=== PATIENT | female | born 1940 | race Caucasian/White ===

== ENCOUNTER 2018-03-30 22:49 | Inpatient (IN) ==
--- NOTE | 2018-03-30 23:12 | XR ---
EXAM DATE: 03/30/2018 11:08 PM EST AGE/SEX: 77 years / Female INDICATIONS: Cough, shortness of breath. CLINICAL DATA: This is the patient's initial encounter. Patient reports that signs and symptoms have been present for 1 day and indicates a pain score of Nonresponsive. MEDICAL/SURGICAL HISTORY: None. None. COMPARISON: POI, XR CHEST PA AND LAT, 02/25/2018. . FINDINGS: Portable AP view of the chest demonstrates a normal-sized cardiac silhouette with tortuous descending thoracic aorta. Air-filled retrocardiac midline mass represents a hiatal hernia. No pleural effusion , airspace consolidation, or pneumothorax is identified. The bones and soft tissues demonstrate no [place] finding. CONCLUSION: 1. No acute cardiopulmonary abnormality is identified. 2. Stable hiatal hernia. Electronically signed by: Taz Lu MD Board Certified Radiologist 03/30/2018 11:11 PM EST
--- NOTE | 2018-03-30 23:28 | ED ---
HPI General Chief complaint: Shortness of Breath/Dyspnea Stated complaint: sob/evac Time Seen by Provider: 03/30/18 22:52 Source: patient Mode of arrival: EMS Limitations: no limitations History of Present Illness HPI narrative: Patient is a 77 year old female, brought in by EMS due to shortness of breath. She says it started about 4 hours prior to arrival. She has been having an issue with coughing and shortness of breath since [place]. She says she has been working with her doctor to try and find the cause, but has not received a diagnosis. She denies fever or chills. She denies chest pain, leg pain or swelling. She also reports multiple seizures today. Severity is moderate. Related Data Home Medications Medication Instructions Recorded Confirmed albuterol sulfate [Ventolin HFA] 1 puff INHALATION Q6H PRN 03/30/18 03/30/18 carbamazepine 200 mg PO TID 03/30/18 03/30/18 cyanocobalamin (vitamin B-12) 1,000 mcg PO DAILY 03/30/18 03/30/18 [Vitamin B-12] omeprazole 20 mg PO DAILY 03/30/18 03/30/18 sumatriptan succinate 100 mg PO DAILY PRN 03/30/18 03/30/18 trazodone 150 mg PO DAILY 03/30/18 03/30/18 Allergies Allergy/AdvReac Type Severity Reaction Status Date / Time No Known Allergies Allergy Verified 03/30/18 23:01 Review of Systems ROS: all other systems reviewed are negative Constitutional Denies chills and Denies fever(s) ENT Denies dizziness Cardiovascular Denies chest pain and Reports dyspnea Respiratory Reports cough and Reports dyspnea Gastrointestinal Denies abdominal pain, Denies nausea and Denies vomiting Musculoskeletal Denies myalgias and Denies arthralgias Integumentary/Breasts Denies sores and Denies wounds Neurologic Reports seizure-like activity PMFSH Medical History Medical History History of anemia (Acute) Hx of hiatal hernia (Acute) Hx of migraines (Acute) Hx of seizure disorder (Acute) Surgical History Surgical History Hx of appendectomy (Acute) Social History Social History Substance History: No History of Abuse Smoking Status: Never smoker How Often Do You Have a Drink Containing Alcohol: Never Recent Travel in [facility] within the Last 8 Weeks: No Recent Out of Country Travel within the Last 8 Weeks: No Exam Narrative Exam Narrative: GENERAL: Awake and alert, in mild respiratory distress. SKIN: Focused skin assessment warm/dry. HEAD: Atraumatic. Normocephalic. EYES: Pupils equal and round. No scleral icterus. No injection or drainage. ENT: No nasal bleeding or discharge. Mucous membranes pink and moist. NECK: Trachea midline. No JVD. CARDIOVASCULAR: Tachycardia. No murmur appreciated. RESPIRATORY: No accessory muscle use. Diffuse wheezing and coarse breath sounds. Breath sounds equal bilaterally. GASTROINTESTINAL: Abdomen soft, non-tender, nondistended. Hepatic and splenic margins not palpable. MUSCULOSKELETAL: No obvious deformities. No clubbing. No cyanosis. No edema. NEUROLOGICAL: Awake and alert. No obvious cranial nerve deficits. Motor grossly within normal limits. Normal speech. PSYCHIATRIC: Appropriate mood and affect; insight and judgment normal. Course Initial Documented Vital Signs Pulse Rate 120 H 03/30/18 22:49 Respiratory Rate 25 H 03/30/18 22:49 Last Documented Vital Signs Temperature 98.5 F 03/30/18 22:52 Pulse Rate 102 H 03/31/18 00:53 Respiratory Rate 20 03/31/18 00:53 Blood Pressure 123/59 L 03/31/18 00:53 Pulse Oximetry 96 03/31/18 01:16 Critical Care Time Critical Care Time: Yes Total Critical Care Time: 35 Attestation: Aggregate critical care time was 35 minutes. Time to perform other separately billable procedures was not included in the critical care time. My time did not include minutes spent treating any other patients simultaneously or on activities that did not directly contribute to the patient's treatment. The services I provided to this patient were to treat and/or prevent clinically significant deterioration that could result in: serious illness or I provided critical care services requiring my management, as noted below: Chart data review, documentation time, medication orders and management, vital sign assessments/reviewing monitor data, ordering and reviewing lab tests, ordering and interpreting/reviewing x-rays and diagnostic studies, care of the patient and discussion of the patient with the admitting physicians. Medical Decision Making MDM Narrative Medical decision making narrative: Patient is a 77 year old female who comes in complaining of shortness of breath. Exam shows mild respiratory distress, diffuse wheezing and coarse breath sounds. IV established, labs sent. Given 3 duonebs. She received 125mg solumedrol by EMS. Patient's oxygen saturation is 85% on room air, improves to the high 90s on NC. Labs concerning for a WBC count of 17.5. Troponin is elevated to 0.33. Given Aspirin, Heparin. Given Rocephin and Azithromycin. Patient is very anxious, given 0.5mg Ativan PO. CTA chest performed shows no acute abnormalities. Patient admitted for further management. Medical Screen Exam Complete: Yes Emergency Medical Condition: Yes Differential Diagnosis Differential Diagnosis: COPD versus pneumonia versus PE versus ACS Medical Records Medical records reviewed: Yes I reviewed the patient's medical records. Lab Data Lab results reviewed: Yes I reviewed the patient's lab results. Result diagrams: 03/30/18 23:30 03/30/18 23:30 Lab Results 03/30/18 03/30/18 03/30/18 Range/Units 23:30 23:30 23:30 CBC w Diff Slide review pending WBC 17.5 H (4.0-11.0) th/mm3 RBC 3.45 L (4.00-5.30) mil/mm3 Hgb 11.1 L (11.6-15.3) gm/dL Hct 33.5 L (35.0-46.0) % MCV 97.0 (80.0-100.0) fL MCH 32.1 (27.0-34.0) pg MCHC 33.0 (32.0-36.0) % RDW 13.7 (11.6-17.2) % Plt Count 557 H (150-450) th/mm3 MPV 7.5 (7.0-11.0) fL Neut % (Auto) 80.3 H (16.0-70.0) % Lymph % (Auto) 6.1 L (9.0-44.0) % [place] % (Auto) 5.3 (0.0-8.0) % Eos % (Auto) 8.1 H (0.0-4.0) % Baso % (Auto) 0.2 (0.0-2.0) % Neut # (Auto) 14.1 H (1.8-7.7) th/mm3 Lymph # (Auto) 1.1 (1.0-4.8) th/mm3 [place] # (Auto) 0.9 (0.0-0.9) th/mm3 Eos # (Auto) 1.4 H (0.0-0.4) th/mm3 Baso # (Auto) 0.0 (0.0-0.2) th/mm3 WBC Differential . Diff Scan Auto diff confirmed Differential Comment . Platelet Estimate High H (Normal) Platelet Morphology Enlarged H (Normal) PT 10.8 (9.8-11.6) sec INR 1.1 Ratio APTT 25.5 (23.4-31.7) sec Sodium 142 (136-145) meq/L Potassium 3.3 L (3.5-5.1) meq/L Chloride 107 (98-107) meq/L Carbon Dioxide 23.2 (21.0-32.0) meq/L Anion Gap 12 (5-15) meq/L BUN 16 (7-18) mg/dL Creatinine 1.10 H (0.50-1.00) mg/dL Estimated GFR 48 L (>89) mL/min Random Glucose 188 H (74-106) mg/dL Calcium 7.6 L (8.5-10.1) mg/dL Total Bilirubin 0.2 (0.2-1.0) mg/dL AST 19 (15-37) U/L ALT 14 (10-53) U/L Alkaline Phosphatase 64 (45-117) U/L Total Creatine Kinase 252 H (26-192) U/L CK-MB (CK-2) 2.9 (0.5-3.6) ng/mL CK-MB (CK-2) % 1.2 (0.0-4.0) % Troponin I 0.33 H (0.02-0.05) ng/mL Total Protein 7.0 (6.4-8.2) g/dL Albumin 3.1 L (3.4-5.0) g/dL Imaging Data Radiologist's impression: Chest X-Ray 03/30/18 22:53 CONCLUSION: 1. No acute cardiopulmonary abnormality is identified. 2. Stable hiatal hernia. Chest CTA 03/31/18 00:14 CONCLUSION: 1. Examination of the pulmonary arteries is less than optimal in the lower lobe secondary to respiratory motion artifact. The vessels that are adequately evaluated demonstrate no PE. 2. Stable hiatal hernia. ECG Data EKG Prior to Arrival: No Attestation: I personally reviewed and interpreted this ECG as follows: Interpretation: ECG shows NSR at a rate of 79, no ST elevation or depression Discharge Plan Discharge Disposition Patient Disposition: ED Admit(ED Internal Use Only) Discharge Condition Condition: Stable Discharge Order Discharge Orders: ED Use Only Admit Order (Routine); Ordered 03/31/18 Ordered By: Cindy Goldberg Discharge Details Diagnosis: Non-ST elevation MT (NSTEMI), Hypoxia Physicians Team ED Provider: Cindy Goldberg Primary Care Provider: Jose Mcclain Attending Provider: Viviane Chahal Discharge Interventions Interventions: Vital Signs Last Done: 03/31/18 00:53 Status ED Status: Admitted Patient
[2018-03-30 23:58] LABS: Baso % (Auto) 0.2 % (0.0-2.0); Eos # (Auto) 1.4 th/mm3 (0.0-0.4); Eos % (Auto) 8.1 % (0.0-4.0); Hematocrit 33.5 % (35.0-46.0); Hemoglobin 11.1 gm/dL (11.6-15.3); Lymph # (Auto) 1.1 th/mm3 (1.0-4.8); Lymph % (Auto) 6.1 % (9.0-44.0); Mean Corpuscular Hemoglobin 32.1 pg (27.0-34.0); Mean Platelet Volume 7.5 fL (7.0-11.0); Mono # (Auto) 0.9 th/mm3 (0.0-0.9); Mono % (Auto) 5.3 % (0.0-8.0); Neut # (Auto) 14.1 th/mm3 (1.8-7.7); Neut % (Auto) 80.3 % (16.0-70.0); Platelet Count 557 th/mm3 (150-450); Red Blood Count 3.45 mil/mm3 (4.00-5.30); Red Cell Distribution Width 13.7 % (11.6-17.2); White Blood Count 17.5 th/mm3 (4.0-11.0)
[2018-03-31 00:03] LABS: Chloride 107 meq/L (98-107); Potassium 3.3 meq/L (3.5-5.1); Sodium 142 meq/L (136-145)
[2018-03-31 00:07] LABS: Albumin 3.1 g/dL (3.4-5.0); Calcium 7.6 mg/dL (8.5-10.1)
[2018-03-31 00:08] LABS: Activated Partial Thrombo Time 25.5 sec (23.4-31.7); Anion Gap 12 meq/L (5-15); Blood Urea Nitrogen 16 mg/dL (7-18); Carbon Dioxide 23.2 meq/L (21.0-32.0); Glucose,Random 188 mg/dL (74-106); INR 1.1 Ratio; Prothrombin Time 10.8 sec (9.8-11.6)
[2018-03-31 00:11] LABS: Alanine Aminotransferase 14 U/L (10-53); Aspartate Aminotransferase 19 U/L (15-37); Glomerular Filtration Rate 48 mL/min (>89)
[2018-03-31 00:13] LABS: Creatine Kinase 252 U/L (26-192)
[2018-03-31 00:14] LABS: Alkaline Phosphatase 64 U/L (45-117)
[2018-03-31 00:15] LABS: Troponin I 0.33 ng/mL (0.02-0.05)
[2018-03-31 00:25] LABS: CKMB Percent 1.2 % (0.0-4.0); Creatine Kinase MB 2.9 ng/mL (0.5-3.6)
--- NOTE | 2018-03-31 00:57 | CT ---
EXAM DATE: 03/31/2018 12:46 AM EST AGE/SEX: 77 years / Female INDICATIONS: Short of breath. CLINICAL DATA: This is the patient's initial encounter. Patient reports that signs and symptoms have been present for 1 day and indicates a pain score of 0/10. MEDICAL/SURGICAL HISTORY: Hiatal hernia. Seizures. Anemia. None. RADIATION DOSE: 16.44 CTDI (mGy) COMPARISON: POI, XR CHEST PA AND LAT, 02/25/2018. HPO, CHEST 1V SINGLE AP, 03/30/2018. . TECHNIQUE: Volumetric scanning was performed using a multi-row detector CT scanner during bolus infu duarte of 65 ml Omnipaque 350 (iohexol) nonionic water-soluble contrast as a single exam dose. The gracie a was post processed with a variety of visualization algorithms including full volume maximum intensi ty projection and sliding thin slab reformation. Using automated exposure control and adjustment of the mA and/or kV according to patient size, radiation dose was kept as low as reasonably achievable t o obtain optimal diagnostic quality images. DICOM format image data is available electronically for review and comparison. FINDINGS: Examination quality is degraded by respiratory motion artifact. Pulmonary Arteries: No filling defect is identified through most of the segmental level pulmonary art eries. However, the lower lobe pulmonary arteries are suboptimally evaluated secondary to the respira tory motion artifact. Lungs: Detailed evaluation of the lung parenchyma is limited by respiratory motion artifact but no a irspace consolidation or pneumothorax is identified. Mediastinum: The heart and great vessels demonstrate no acute abnormality. No lymphadenopathy is vis ualized. There is atherosclerotic disease of the aorta. Pleurae: No pleural effusion or pleural thickening. Axillae: No lymphadenopathy. Musculoskeletal: No acute osseous abnormality is identified. There are degenerative changes of the t horacic spine with accentuated thoracic kyphosis. Other: Visualized upper abdominal structures demonstrate no acute abnormality. There is a right uppe r pole renal cyst measuring 4 cm. Adrenal glands are mildly thickened bilaterally. There is a hiatal hernia. CONCLUSION: 1. Examination of the pulmonary arteries is less than optimal in the lower lobe secondary to respira tory motion artifact. The vessels that are adequately evaluated demonstrate no PE. 2. Stable hiatal hernia. Electronically signed by: Taz Lu MD Board Certified Radiologist 03/31/2018 12:55 AM EST
[2018-03-31] MEDS ORDERED: Heparin 10,000 UNITS/10 ML Vial (for IV use) IV.PUSH STA (01:40)
[2018-03-31] MEDS ORDERED: LORazepam 0.5 MG Tablet PO ONE (01:42)
[2018-03-31] MEDS ORDERED: Azithromycin Inj 500 MG in Sodium Chlor 0.9% Inj 250 ML IV.SIG ONE (01:51)
[2018-03-31] MEDS: Heparin Drip 25,000 UNIT/250 ML BAG IV.CONT PRN (02:12)
[2018-03-31] MEDS ORDERED: Acetaminophen 325 MG Tablet PO PRN (04:58)
[2018-03-31] MEDS ORDERED: Bisacodyl 10 MG Supp RECTAL PRN (04:58)
[2018-03-31] MEDS: Pantoprazole Sodium 20 MG DR Tablet PO SCH (08:24)
[2018-03-31] MEDS: carBAMazepine 200 MG Tablet PO SCH ×3 (08:24→17:05)
[2018-03-31 09:10] LABS: Troponin I 0.94 ng/mL (0.02-0.05)
[2018-03-31 09:22] LABS: CKMB Percent 1.7 % (0.0-4.0)
--- NOTE | 2018-03-31 10:10 | P.HPIM ---
History of Present Illness Primary Care Physician: Jose Mcclain MD Chief Complaint: Shortness of breath and cough History of Present Illness: This is a 77-year-old female with history of seizures, no other significant comorbidities presenting with shortness of breath and cough which has been going on since December 2017. Per patient, outpatient workup has already been done, there is no diagnosis yet as to the etiology of her shortness of breath. She has been given Ventolin with minimal improvement. This is progressively worsened during the last few weeks. Last night, patient had a coughing spell and she called her son who brought her to the hospital. She also had an episode of aura that usually comes with her seizure but she did not have any involuntary rhythmic movements of her extremities but felt numbness of both lower extremities. She denies any chest pain, palpitations, nausea, vomiting, fever, chills, diarrhea or urinary symptoms. She however started having left lower quadrant pain when she coughs about 1 week ago. Past medical history Please see past medical history section, in addition, she was found to have a hiatal hernia No previous history of surgery Family history Both parents from heart attacks at late 70s Both sisters had cancer, one had pancreatic cancer, another one had a throat cancer Patient never a smoker, no significant alcohol use. Inpatient Certification Inpatient Certification: I certify that the inpatient services were ordered in accordance with Medicare regulations governing the order. This includes certification that hospital inpatient services are reasonable and necessary and in the case of services not specified as inpatient-only under 42 CFR 419.22(n), that they are appropriately provided as inpatient services in accordance to with the 2-midnight benchmark under 43 CFR 412.3(e) Estimated Total Length of Stay (Days): 3 Plans for Post Hospital Care: Not yet determined Review of Systems Review of Systems: all other systems reviewed are negative [facility] Medical History Medical History History of anemia (Acute) Hx of hiatal hernia (Acute) Hx of migraines (Acute) Hx of seizure disorder (Acute) Surgical History Surgical History Hx of appendectomy (Acute) Social History Social History Substance History: No History of Abuse Second Hand Smoke Exposure: No Smoking Status: Never smoker How Often Do You Have a Drink Containing Alcohol: Never Recent Travel in [place] within the Last 8 Weeks: No Recent Out of Country Travel within the Last 8 Weeks: No Immunization History Tetanus Immunization: >5 Years Medications and Allergies Allergies Allergy/AdvReac Type Severity Reaction Status Date / Time No Known Allergies Allergy Verified 03/30/18 23:01 Home Medications Medication Instructions Recorded Confirmed Type albuterol sulfate [Ventolin HFA] 1 puff INHALATION Q6H PRN 03/30/18 03/30/18 History carbamazepine 200 mg PO TID 03/30/18 03/30/18 History cyanocobalamin (vitamin B-12) 1,000 mcg PO DAILY 03/30/18 03/30/18 History [Vitamin B-12] omeprazole 20 mg PO DAILY 03/30/18 03/30/18 History sumatriptan succinate 100 mg PO DAILY PRN 03/30/18 03/30/18 History trazodone 150 mg PO DAILY 03/30/18 03/30/18 History Active Medications: Active Medications Acetaminophen (Tylenol) 650 mg PO Q4H PRN PRN Reason: Temp > 100.4 Albuterol (Duoneb Neb (Prn)) 1 ampul NEB Q2HR NEB PRN PRN Reason: SHORTNESS OF BREATH/WHEEZING Bisacodyl (Dulcolax Supp) 10 mg RECTAL DAILY PRN PRN Reason: SEVERE CONSITIPATION Carbamazepine (Tegretol) 200 mg PO TID [facility] Last Admin: 03/31/18 08:24 Dose: 200 mg Heparin Sodium/Dextrose (Heparin/D5w 25,000 U/250 Ml) 25,000 unit in 250 mls @ 0 mls/hr IV.CONT TITRATE PRN; Protocol PRN Reason: Per Protocol Last Titration: 03/31/18 04:59 Dose: 700 units/hr, 7 mls/hr Ondansetron HCl (Zofran Inj) 4 mg IV.PUSH Q6H PRN PRN Reason: NAUSEA OR VOMITING Pantoprazole Sodium (Protonix) 20 mg PO DAILY [facility] Last Admin: 03/31/18 08:24 Dose: 20 mg Sennosides (Senokot) 17.2 mg PO Q12H PRN PRN Reason: Moderate Constipation Sodium Chloride (Ns Flush) 2 ml IV.FLUSH BID [facility] Last Admin: 03/31/18 08:24 Dose: 2 ml Sodium Chloride (Ns Flush) 2 ml IV.FLUSH PRN PRN PRN Reason: FLUSH AFTER USING IV ACCESS Sumatriptan Succinate (Imitrex) 100 mg PO DAILY PRN PRN Reason: migraines Trazodone HCl (Desyrel) 150 mg PO [facility] Physical Exam Vital signs: Vital Signs 03/30/18 22:49 03/30/18 22:52 03/30/18 22:55 Temperature 98.5 F Pulse Rate 120 H 130 H 119 H Respiratory Rate 25 H 30 H 25 H Blood Pressure 161/99 H Pulse Oximetry 91 L 03/30/18 23:02 03/30/18 23:15 03/31/18 00:53 Temperature Pulse Rate 115 H 102 H Respiratory Rate 23 20 Blood Pressure 123/59 L Pulse Oximetry 97 96 03/31/18 00:54 03/31/18 01:16 03/31/18 03:08 Temperature Pulse Rate 104 H Respiratory Rate 18 Blood Pressure 120/62 Pulse Oximetry 96 96 98 03/31/18 04:54 03/31/18 08:00 Temperature 98.3 F Pulse Rate 109 H 93 H Respiratory Rate 20 15 Blood Pressure 144/75 H 131/69 Pulse Oximetry 98 99 Intake & Output 03/30/18 03/31/18 03/31/18 18:59 06:59 18:59 Intake Total 350 / 350 Balance 350 / 350 Weight 55.45 kg Intake: IV 350 / 350 Azithromycin Inj 500 MG In NS 250 / 250 Inj 250 ML @ 250 mls/hr IV.SIG ONCE ONE Rx#:[id number] Rocephin Inj 1,000 MG In NS Inj 100 / 100 100 ML @ 200 mls/hr IV.SIG ONCE ONE Rx#:[id number] Other: Date of Last Bowel Movement 03/30/18 Weight On Admission 55.45 kg Narrative: In mild distress because of coughing spells, otherwise saturating well Pupils equal round reactive, pink conjunctivae, anicteric No obvious JVD, supple neck, no lymphadenopathy Borderline tachycardic, regular rhythm, no murmurs appreciated Crackles all over, breath sounds equal bilaterally. Abdomen soft, mild tenderness on the palpation of the left lower quadrant, no guarding, positive bowel sounds No edema Alert awake and oriented x3, no focal deficits, no cranial nerve deficits. Results Labs CBC & Chem 7: 03/30/18 23:30 03/30/18 23:30 Imaging Impressions Chest X-Ray 03/30/18 22:53 CONCLUSION: 1. No acute cardiopulmonary abnormality is identified. 2. Stable hiatal hernia. Chest CTA 03/31/18 00:14 CONCLUSION: 1. Examination of the pulmonary arteries is less than optimal in the lower lobe secondary to respiratory motion artifact. The vessels that are adequately evaluated demonstrate no PE. 2. Stable hiatal hernia. Caprini VTE Risk Assessment Caprini VTE Risk Assessment: Moderate/High Risk (score >= 2) Caprini Risk Assessment Model: Point Value = 1 Point Value = 2 Point Value = 3 Point Value = 5 Age 41-60 Minor surgery BMI > 25 kg/m2 Swollen legs Varicose veins or History of unexplained or recurrent spontaneous Oral contraceptives or hormone replacement Sepsis (< 1 month) Serious lung disease, including pneumonia (< 1 month) Abnormal pulmonary function Acute myocardial infarction Congestive heart failure (< 1 month) History of inflammatory bowel disease Medical patient at bed rest Age 61-74 Arthroscopic surgery Major open surgery (> 45 min) Laparoscopic surgery (> 45 min) Malignancy Confined to bed (> 72 hours) Immobilizing plaster cast Central venous access Age >= 75 History of VTE Family history of VTE Factor V Leiden Prothrombin [id number] Lupus anticoagulant Anticardiolipin antibodies Elevated serum homocysteine Heparin-induced thrombocytopenia Other congenital or acquired thrombophilia Stroke (< 1 month) Elective arthroplasty Hip, pelvis, or leg fracture Acute spinal cord injury (< 1 month) Prophylaxis Regimen: Total Risk Factor Score Risk Level Prophylaxis Regimen 0-1 Low Early ambulation 2 Moderate Order ONE of the following: *Sequential Compression Device (SCD) *Heparin 5000 units SQ BID 3-4 Higher Order ONE of the following medications: *Heparin 5000 units SQ TID *Enoxaparin/Lovenox 40 mg SQ daily (WT < 150 kg, CrCl > 30 mL/min) *Enoxaparin/Lovenox 30 mg SQ daily (WT < 150 kg, CrCl > 10-29 mL/min) *Enoxaparin/Lovenox 30 mg SQ BID (WT < 150 kg, CrCl > 30 mL/min) AND/OR *Sequential Compression Device (SCD) 5 or more Highest Order ONE of the following medications: *Heparin 5000 units SQ TID (Preferred with Epidurals) *Enoxaparin/Lovenox 40 mg SQ daily (WT < 150 kg, CrCl > 30 mL/min) *Enoxaparin/Lovenox 30 mg SQ daily (WT < 150 kg, CrCl > 10-29 mL/min) *Enoxaparin/Lovenox 30 mg SQ BID (WT < 150 kg, CrCl > 30 mL/min) AND *Sequential Compression Device (SCD) Assessment and Plan Plan This is a 77-year-old female with history of seizures presenting with chronic shortness of breath which worsened in the last few days Shortness of breath possibly secondary to congestive heart failure versus possible pulmonary fibrosis, r/o PNA -check BNP, chest x-ray did not show any pulmonary edema, chest CTA negative for PE, not the best study though. Consult pulmonary, possible pulmonary fibrosis given coarse crackles on exam start duo nebs [id number] and as needed, will eventually need pulmonary function tests. There is also no evidence of pleural effusion. Patient has leukocytosis but no evidence of pneumonia on imaging, check sputum culture, check Legionella antigen. Rapid flu negative. Check echocardiogram, start Solu -Medrol. Doubt aggressive infection due to time frame of symptoms, hold off azithromycin and CTX for now. Tessalon for symptomatic management. Mild troponin elevation-serial EKG and troponin, consult cardiology, patient denies any chest pain, check echocardiogram as above. Start aspirin. Check lipid profile, continue heparin. Seizures-patient had an aura prior to admission, continue home AEDs, check carbamazepine level. Dehydration-recheck BMP tomorrow. Will await BNP. Hypokalemia-replace DVT prophylaxis: Heparin H&P: Quality VTE Deep Vein Thrombosis/Pulmonary Embolism Present on Admission: No
[2018-03-31] MEDS ORDERED: Potassium Chloride Liq 20 MEQ/15 ML UDC PO ONE (10:16)
[2018-03-31] MEDS: MethylPREDNISolone Sod Succinate Inj 40 MG/ML Vial IV.PUSH SCH ×2 (13:04→20:59)
--- NOTE | 2018-03-31 13:30 | ECHRPT ---
Indication: Cardiomyopathy CONCLUSIONS Normal left ventricular size. Wall thickness is measured at the upper limits of normal. The left sherly tricular systolic function is normal with an estimated ejection fraction in the range of 50-55%. No regional wall motion abnormalities are present. Trace mitral valve regurgitation. Mild mitral annular calcification is present. Mild leaflet sclero sis and calcification. BP: / HR: Rhythm: MEASUREMENTS (Male / Female) Normal Values Technical Quality:Fair 2D ECHO LV Diastolic Diameter PLAX 4.3 cm 4.2 - 5.9 / 3.9 - 5.3 cm LV Systolic Diameter PLAX 3.2 cm IVS Diastolic Thickness 1.0 cm 0.6 - 1.0 / 0.6 - 0.9 cm LVPW Diastolic Thickness 0.8 cm 0.6 - 1.0 / 0.6 - 0.9 cm LV Relative Wall Thickness 0.4 RV Internal Dim ED PLAX 2.4 cm LVOT Diameter 1.9 cm Aortic Root Diameter 2.8 cm LA Systolic Diameter LX 3.7 cm 3.0 - 4.0 / 2.7 - 3.8 cm M-MODE AV Cusp Separation MM 1.7 cm DOPPLER AV Peak Velocity 127.0 cm/s AV Peak Gradient 6.5 mmHg LVOT Peak Velocity 82.4 cm/s LVOT Peak Gradient 2.7 mmHg AV Area Cont Eq pk 1.8 cm Mitral E Point Velocity 101.0 cm/s Mitral A Point Velocity 121.0 cm/s Mitral E to A Ratio 0.8 LV E' Lateral Velocity 7.5 cm/s Mitral E to LV E' Lateral Ratio 13.4 LV E' Septal Velocity 5.5 cm/s Mitral E to LV E' Septal Ratio 18.5 TR Peak Velocity 244.0 cm/s TR Peak Gradient 23.8 mmHg Right Atrial Pressure 10.0 mmHg Pulmonary Artery Systolic Pressu 33.8 mmHg Right Ventricular Systolic Press 33.8 mmHg PV Peak Velocity 96.4 cm/s PV Peak Gradient 3.7 mmHg FINDINGS LEFT VENTRICLE Normal left ventricular size. Wall thickness is measured at the upper limits of normal. The left sherly tricular systolic function is normal with an estimated ejection fraction in the range of 50-55%. No regional wall motion abnormalities are present. RIGHT VENTRICLE Normal right ventricular size and systolic function. LEFT ATRIUM The left atrial size is normal. RIGHT ATRIUM The right atrial size is normal. ATRIAL SEPTUM Normal atrial septal thickness without atrial level shunting by limited color doppler interrogation. AORTA The aortic root and proximal ascending aorta are normal in size on limited imaging. MITRAL VALVE Trace mitral valve regurgitation. Mild mitral annular calcification is present. Mild leaflet sclero sis and calcification. AORTIC VALVE Trileaflet aortic valve. No aortic valve stenosis or regurgitation. TRICUSPID VALVE Structurally normal tricuspid valve. No tricuspid valve stenosis or regurgitation. PULMONARY VALVE No pulmonary valve regurgitation or stenosis. VESSELS The inferior vena cava is normal in size. PERICARDIUM There is a small pericardial effusion present. Donovan Pham MD (Electronically Signed) Final Date:31 March 2018 13:29
--- NOTE | 2018-03-31 13:40 | MB ---
cc: Donovan Pham MD DATE: 03/31/2018 REASON FOR CONSULTATION: Abnormal troponin level. HISTORY OF PRESENT ILLNESS: The patient is a 77-year-old white female with a history of migraine headaches, seizure disorder, who presented to the hospital with complaints of shortness of breath as well as increased frequency of seizures. For the past 3 months, she has had increased shortness of breath. Minimal exertion precipitates considerable dyspnea. She denies paroxysmal nocturnal dyspnea, orthopnea, pedal edema, chest pain, palpitations, syncope, near syncope, dizziness. Troponin levels were checked and found to be slightly abnormal. PAST MEDICAL HISTORY: 1. Migraine headaches. 2. Seizure disorder. PAST SURGICAL HISTORY: 1. Appendectomy. 2. Hysterectomy. CARDIAC MEDICATIONS AT HOME: None. ALLERGIES: NO KNOWN DRUG ALLERGIES. FAMILY HISTORY: Noncontributory. SOCIAL HISTORY: The patient denies any history of alcohol or tobacco abuse. REVIEW OF SYSTEMS: As in the history of present illness, otherwise negative or noncontributory. She also denies headache, abdominal pain, melena, dyspepsia, bright red blood per rectum. She does report a chronic nonproductive cough for the past 2-3 months. PHYSICAL EXAMINATION: VITAL SIGNS: Her blood pressure 131/69 with a pulse of 93, respirations 15. GENERAL: She is a well-developed, thin white female, in no acute distress. NECK: Jugular venous pressure is normal. Carotid pulses are 2+ bilaterally and without bruits. CHEST: Examination of the chest reveals clear lungs [place]. CARDIAC: She has a regular rhythm and rate without S3, S4, or murmur. ABDOMEN: She has a soft, nontender abdomen. Bowel sounds are present. There is no definite hepatosplenomegaly. EXTREMITIES: Reveals no clubbing, cyanosis or edema. LABORATORY DATA: Includes WBC 17.5, hemoglobin 11.1, platelets 557. Potassium 3.3, BUN 16, creatinine 1.10. Troponin 0.94, CK 292, with 1.7% MB fraction. Brain natriuretic peptide level 696. IMAGING: Chest x-ray shows no acute disease. DIAGNOSTIC DATA: 1. EKG from 03/30/2018 at 11:10 p.m. shows sinus tachycardia, poor R-wave progression. 2. EKG from 03/31/2018 at 6:12 a.m. shows normal sinus rhythm, poor R-wave progression. IMPRESSION: Minimally abnormal troponin levels, chronic shortness of breath in a 77-year-old white female with a history of migraine headaches, seizure disorder. The etiology of the elevation in troponin is not entirely clear. She has had no chest pain symptoms. EKGs are unremarkable. Except for advanced age, she has no major risk factors for coronary disease. There is no definite evidence for congestive heart failure. CT angiogram of the chest reportedly is suboptimal, but no definite pulmonary embolism is seen. RECOMMENDATIONS: 1. Lexiscan nuclear stress testing. At this time, she is unable to lie flat for this test. We will wait to order the exam until she is able to lie supine. 2. Await her 2D echo. MD JOYCE Aguirre/mauro , 01:05 PM , 01:13 PM ANA
[2018-03-31] MEDS: guaiFENesin/Codeine Syrup 200 MG/20 MG 10 ML UDC PO SCH (18:42)
--- NOTE | 2018-03-31 18:57 | MB ---
cc: Ruben Garcia MD DATE: 03/31/2018 REQUESTING PHYSICIAN: Philly Muller MD REASON FOR CONSULTATION: Persistent cough, possible pulmonary fibrosis. HISTORY OF PRESENT ILLNESS: Ms. Maya is a pleasant 77-year-old female with history of seizure disorder, migraine headache. The patient takes seizure medication. She had some cold symptoms around giving. After that, she has been having persistent cough. She has bouts of coughing spells, and that causes her headache and abdominal discomfort and sometimes that precipitates her seizure. She has taken steroids, antibiotic in the past, did not help her. She came to the hospital with worsening of her shortness of breath and aura of seizure. She was found to have slightly increased troponin. The patient has been seen by Dr. Pham, and she is going to have a nuclear stress test. She had a workup done. Her CTA of the chest does not show any pulmonary embolism. It shows no pneumothorax. Great vessels show no acute abnormality. Her CBC shows WBC count 17.5, hemoglobin 11.1, hematocrit 33.5, MCV 97, platelet count 557. INR is 1.1. Sodium 140, potassium 3.3, chloride 107, CO2 of 23, BUN 16, creatinine 1.10. Troponin 0.258. BNP 696. PAST MEDICAL HISTORY: Significant for history of migraine headache, history of hiatal hernia, seizure disorder. MEDICATIONS: 1. She is taking aspirin 325 mg a day. 2. Tessalon 100 mg every 8 hours. 3. Tegretol 200 mg 3 times a days. 4. She is on heparin drip. 5. Solu-Medrol 40 mg every 6 hours. 6. Zofran p.r.n. 7. Protonix 40 mg a day. 8. Imitrex as needed. 9. trazodone 150 mg at night. ALLERGIES: NO KNOWN DRUG ALLERGIES. SOCIAL HISTORY: She works in the office. No history of smoking or alcohol abuse. FAMILY HISTORY: She is and lives alone. She has 3 children. Her daughter is at the bedside. REVIEW OF SYSTEMS: Normally, she is up, around, and active. She is having persistent cough which is making it difficult for her to do anything. Even when she talks on the phone, she gets short of breath. No heartburn. No runny nose. No sneezing. PHYSICAL EXAMINATION: GENERAL: The patient is a thin-built anxious, elderly female in mild discomfort because of persistent cough. VITAL SIGNS: Blood pressure 115/97, heart rate 85, respirations 17, temperature 98.8. HEENT: Pupils are equal, round, and reactive to light. Oral mucosa and nasal mucosa normal. NECK: No JVD noted. CHEST: Equal air entry bilaterally. Few scattered rhonchi. CARDIOVASCULAR: S1, S2 normal. ABDOMEN: Benign. EXTREMITIES: No edema. IMPRESSION: 1. Persistent cough, possible reactive airway disease. Need to rule out aberrant bronchial asthma. 2. Migraine headache. 3. Seizure disorder. 4. Anxiety. 5. Increased troponin. PLAN: We will give her IV Solu-Medrol, aerosol treatment with albuterol, Tessalon 100 mg twice a day, Robitussin-AC cough syrup 10 mL every 6 hours. We will check pulmonary function study. Further treatment plan depending on the course in the hospital. Thank you, Dr. Muller, for this consult. MD IRINA Matias/franck/ajay , 06:09 PM , 06:19 PM [email or web address]
[2018-03-31] MEDS: traZODone 100 MG Tablet PO SCH (20:59)
--- NOTE | 2018-04-01 01:30 | ECG ---
Date Performed: 03/30/2018 Time Performed: 23:10:27 PTAGE: 77 years EKG: SINUS TACHYCARDIA WITH FIRST DEGREE AV BLOCK LOW QRS VOLTAGE IN EXTREMITY LEADS ABNORMAL EC G PREVIOUS TRACING : 01/20/2012 15.05 Since the previous tracing, no significant change noted DOCTOR: Felice Soni Interpretating Date/Time 04/01/2018 01:29:37
--- NOTE | 2018-04-01 01:39 | ECG ---
Date Performed: 03/31/2018 Time Performed: 06:12:04 PTAGE: 77 years EKG: Sinus rhythm Poor R wave progression - probable normal variant Borderline ECG PREVIOUS TRACING : 03/30/2018 23.10 Compared to previous tracing, rate has decreased DOCTOR: Felice Soni Interpretating Date/Time 04/01/2018 01:39:06
[2018-04-01] MEDS: guaiFENesin/Codeine Syrup 200 MG/20 MG 10 ML UDC PO SCH ×4 (03:50→17:54)
[2018-04-01] MEDS: MethylPREDNISolone Sod Succinate Inj 40 MG/ML Vial IV.PUSH SCH ×3 (05:52→21:01)
[2018-04-01] MEDS: Heparin Drip 25,000 UNIT/250 ML BAG IV.CONT PRN (05:53)
--- NOTE | 2018-04-01 08:06 | P.PNCA ---
Subjective Interval history: Moderately dyspneic at present. No CP, dizziness, palpitations. Slept fairly well. Medications and Allergies Active Medications: Active Cardiac Medications Aspirin (Aspirin) 325 mg PO DAILY HARVINDER Heparin Sodium/Dextrose (Heparin/D5w 25,000 U/250 Ml) 25,000 unit in 250 mls @ 0 mls/hr IV.CONT TITRATE PRN; Protocol PRN Reason: Per Protocol Last Admin: 04/01/18 05:53 Dose: 900 units/hr, 9 mls/hr Allergies Allergy/AdvReac Type Severity Reaction Status Date / Time No Known Allergies Allergy Verified 03/30/18 23:01 Home Medications Medication Instructions Recorded Confirmed Type albuterol sulfate [Ventolin HFA] 1 puff INHALATION Q6H PRN 03/30/18 03/30/18 History carbamazepine 200 mg PO TID 03/30/18 03/30/18 History cyanocobalamin (vitamin B-12) 1,000 mcg PO DAILY 03/30/18 03/30/18 History [Vitamin B-12] omeprazole 20 mg PO DAILY 03/30/18 03/30/18 History sumatriptan succinate 100 mg PO DAILY PRN 03/30/18 03/30/18 History trazodone 150 mg PO DAILY 03/30/18 03/30/18 History Physical Exam Vital signs: Vital Signs 03/31/18 11:00 03/31/18 13:31 03/31/18 14:53 Temperature Pulse Rate 91 H 92 H 85 Respiratory Rate 20 17 Blood Pressure 115/97 H Pulse Oximetry 98 97 03/31/18 20:00 03/31/18 20:15 03/31/18 22:00 Temperature 97.6 F Pulse Rate 87 82 104 H Respiratory Rate 19 17 Blood Pressure 136/74 Pulse Oximetry 96 97 03/31/18 23:00 04/01/18 00:00 04/01/18 00:32 Temperature 98.5 F Pulse Rate 86 82 83 Respiratory Rate 16 16 Blood Pressure 99/53 L Pulse Oximetry 04/01/18 01:00 04/01/18 02:00 04/01/18 03:00 Temperature Pulse Rate 82 84 78 Respiratory Rate Blood Pressure Pulse Oximetry 04/01/18 04:00 04/01/18 05:00 04/01/18 06:00 Temperature 98.6 F Pulse Rate 75 76 79 Respiratory Rate 14 Blood Pressure 99/46 L Pulse Oximetry 100 Intake & Output 03/31/18 04/01/18 04/01/18 18:59 06:59 18:59 Intake Total 370 / 370 Balance 370 / 370 Weight 55.3 kg Intake: IV 250 / 250 Heparin/D5W 25,000 U/250 mL 25, 250 / 250 000 unit In 250 ml @ Per Protocol IV.CONT TITRATE PRN Rx #:[id number] Oral 120 / 120 Other: # Voids 1 Date of Last Bowel Movement 03/30/18 03/30/18 - Constitutional mild distress - Routine Neck Exam Absent: JVD - Routine Respiratory Exam Present: CTA bilaterally - Routine Cardiovascular Exam Present: S1, S2, tachycardia. Absent: murmur, S3, S4 - Routine Abdominal Exam Present: soft, normoactive bowel sounds. Absent: tenderness - Routine Extremities Exam Absent: cyanosis, clubbing, edema Results 03/30/18 23:30 03/30/18 23:30 Cardiac Enzymes 03/30/18 03/31/18 03/31/18 Range/Units 23:30 07:47 11:01 AST 19 (15-37) U/L CK-MB (CK-2) 2.9 5.0 H (0.5-3.6) ng/mL Troponin I 0.33 H 0.94 H* D 0.88 H* (0.02-0.05) ng/mL B-Natriuretic Peptide (0-100) pg/mL 03/31/18 03/31/18 03/31/18 Range/Units 11:19 15:50 21:56 AST (15-37) U/L CK-MB (CK-2) (0.5-3.6) ng/mL Troponin I 0.58 H D 0.36 H D (0.02-0.05) ng/mL B-Natriuretic Peptide 696 H (0-100) pg/mL Coagulation 03/30/18 03/31/18 03/31/18 Range/Units 23:30 07:47 11:19 PT 10.8 (9.8-11.6) sec APTT 25.5 32.0 H D (23.4-31.7) sec B-Natriuretic Peptide 696 H (0-100) pg/mL 03/31/18 04/01/18 Range/Units 15:50 00:05 PT (9.8-11.6) sec APTT 33.9 H 45.6 H D (23.4-31.7) sec B-Natriuretic Peptide (0-100) pg/mL CBC 03/30/18 Range/Units 23:30 WBC 17.5 H (4.0-11.0) th/mm3 RBC 3.45 L (4.00-5.30) mil/mm3 Hgb 11.1 L (11.6-15.3) gm/dL Hct 33.5 L (35.0-46.0) % Plt Count 557 H (150-450) th/mm3 Neut # (Auto) 14.1 H (1.8-7.7) th/mm3 Lymph # (Auto) 1.1 (1.0-4.8) th/mm3 [place] # (Auto) 0.9 (0.0-0.9) th/mm3 Eos # (Auto) 1.4 H (0.0-0.4) th/mm3 Baso # (Auto) 0.0 (0.0-0.2) th/mm3 Comprehensive Metabolic Panel 03/30/18 Range/Units 23:30 Sodium 142 (136-145) meq/L Potassium 3.3 L (3.5-5.1) meq/L Chloride 107 (98-107) meq/L Carbon Dioxide 23.2 (21.0-32.0) meq/L BUN 16 (7-18) mg/dL Creatinine 1.10 H (0.50-1.00) mg/dL Calcium 7.6 L (8.5-10.1) mg/dL AST 19 (15-37) U/L ALT 14 (10-53) U/L Alkaline Phosphatase 64 (45-117) U/L Total Protein 7.0 (6.4-8.2) g/dL Albumin 3.1 L (3.4-5.0) g/dL Intake and Output 03/31/18 04/01/18 04/01/18 22:59 06:59 14:59 Intake Total 120 / 120 250 / 250 Balance 120 / 120 250 / 250 Intake: IV 250 / 250 Heparin/D5W 25,000 U/250 mL 25, 250 / 250 000 unit In 250 ml @ Per Protocol IV.CONT TITRATE PRN Rx #:[id number] Oral 120 / 120 Other: # Voids 1 Date of Last Bowel Movement 03/30/18 03/30/18 Weight 55.3 kg - Imaging and Cardiology Imaging: Impressions Chest X-Ray 03/30/18 22:53 CONCLUSION: 1. No acute cardiopulmonary abnormality is identified. 2. Stable hiatal hernia. Chest CTA 03/31/18 00:14 CONCLUSION: 1. Examination of the pulmonary arteries is less than optimal in the lower lobe secondary to respiratory motion artifact. The vessels that are adequately evaluated demonstrate no PE. 2. Stable hiatal hernia. Assessment and Plan - Assessment (1) Elevated troponin Code(s): R74.8 - Abnormal levels of other serum enzymes Status: Acute Plan: Cardiac status stable overnight. No definite angina symptoms. Troponin levels minimally elevated and trending downward. Patient still unable to lie flat for nuclear stress testing. Echo unremarkable. Recommend nuclear stress test when able to lie flat for the test. Can stop heparin, continue daily aspirin. If stable tomorrow can do the stress test as an outpatient. Dr. Soni to see PRN over the weekend. - Plan Code Status: full code Discussed Condition With: patient
[2018-04-01 08:36] LABS: Baso % (Auto) 0.3 % (0.0-2.0); Eos # (Auto) 0.5 th/mm3 (0.0-0.4); Eos % (Auto) 6.6 % (0.0-4.0); Hematocrit 32.3 % (35.0-46.0); Hemoglobin 10.8 gm/dL (11.6-15.3); Lymph # (Auto) 1.3 th/mm3 (1.0-4.8); Lymph % (Auto) 18.7 % (9.0-44.0); Mean Corpuscular HGB Conc 33.3 % (32.0-36.0); Mean Corpuscular Volume 96.1 fL (80.0-100.0); Mean Platelet Volume 7.3 fL (7.0-11.0); Mono # (Auto) 0.4 th/mm3 (0.0-0.9); Mono % (Auto) 5.5 % (0.0-8.0); Neut # (Auto) 4.9 th/mm3 (1.8-7.7); Neut % (Auto) 68.9 % (16.0-70.0); Platelet Count 474 th/mm3 (150-450); Red Blood Count 3.36 mil/mm3 (4.00-5.30); Red Cell Distribution Width 13.7 % (11.6-17.2); White Blood Count 7.1 th/mm3 (4.0-11.0)
[2018-04-01] MEDS: Benzonatate 100 MG Capsule PO PRN (08:41)
[2018-04-01 09:07] LABS: Anion Gap 9 meq/L (5-15); Blood Urea Nitrogen 18 mg/dL (7-18); Carbon Dioxide 28.5 meq/L (21.0-32.0); Chloride 102 meq/L (98-107); Glomerular Filtration Rate 37 mL/min (>89); Glucose,Random 102 mg/dL (74-106); Potassium 4.9 meq/L (3.5-5.1); Sodium 139 meq/L (136-145)
[2018-04-01 09:09] LABS: Cholesterol 313 mg/dL (120-200)
[2018-04-01] MEDS: Aspirin 325 MG Tablet PO SCH (09:09)
[2018-04-01] MEDS: Pantoprazole Sodium 20 MG DR Tablet PO SCH (09:09)
[2018-04-01] MEDS: carBAMazepine 200 MG Tablet PO SCH ×3 (09:09→17:53)
[2018-04-01 09:15] LABS: Alanine Aminotransferase 15 U/L (10-53); Albumin 3.3 g/dL (3.4-5.0); Carbamazepine (Tegretol) 8.9 mcg/mL (4.0-12.0); Chol/HDL Ratio 2.62 Ratio; HDL Cholesterol 119.2 mg/dL (40.0-60.0); LDL Cholesterol,Calculated 176 mg/dL (0-99); Triglycerides 91 mg/dL (42-150)
[2018-04-01 09:16] LABS: Alkaline Phosphatase 60 U/L (45-117); Aspartate Aminotransferase 19 U/L (15-37); Total Protein 7.8 g/dL (6.4-8.2)
--- NOTE | 2018-04-01 09:55 | P.PNIM ---
Subjective Interval history: Patient says she continues short of breath with spasmodic cough that will not go away. She reports chest discomfort only with coughing. Denies any lightheadedness or dizziness. Denies any nausea or vomiting. Physical Exam Vital signs: Vital Signs 03/31/18 11:00 03/31/18 13:31 03/31/18 14:53 Temperature Pulse Rate 91 H 92 H 85 Respiratory Rate 20 17 Blood Pressure 115/97 H Pulse Oximetry 98 97 03/31/18 20:00 03/31/18 20:15 03/31/18 22:00 Temperature 97.6 F Pulse Rate 87 82 104 H Respiratory Rate 19 17 Blood Pressure 136/74 Pulse Oximetry 96 97 03/31/18 23:00 04/01/18 00:00 04/01/18 00:32 Temperature 98.5 F Pulse Rate 86 82 83 Respiratory Rate 16 16 Blood Pressure 99/53 L Pulse Oximetry 04/01/18 01:00 04/01/18 02:00 04/01/18 03:00 Temperature Pulse Rate 82 84 78 Respiratory Rate Blood Pressure Pulse Oximetry 04/01/18 04:00 04/01/18 05:00 04/01/18 06:00 Temperature 98.6 F Pulse Rate 75 76 79 Respiratory Rate 14 Blood Pressure 99/46 L Pulse Oximetry 100 04/01/18 08:00 Temperature 98.1 F Pulse Rate 90 Respiratory Rate 22 Blood Pressure 117/56 L Pulse Oximetry 100 Intake & Output 03/31/18 04/01/18 04/01/18 18:59 06:59 18:59 Intake Total 370 / 370 Balance 370 / 370 Weight 55.3 kg Intake: IV 250 / 250 Heparin/D5W 25,000 U/250 mL 25, 250 / 250 000 unit In 250 ml @ Per Protocol IV.CONT TITRATE PRN Rx #:[id number] Oral 120 / 120 Other: # Voids 1 Date of Last Bowel Movement 03/30/18 03/30/18 Narrative: GENERAL: Patient sitting up in bed with a dry cough. Alert and oriented x3. SKIN: Warm and dry. HEAD: Normocephalic. EYES: No scleral icterus. No injection or drainage. NECK: Supple, trachea midline. No JVD. CARDIOVASCULAR: Regular rate and rhythm without murmurs, gallops, or rubs. RESPIRATORY: Breath sounds equal bilaterally. No accessory muscle use. Crackles in bases. GASTROINTESTINAL: Abdomen soft, non-tender, nondistended. MUSCULOSKELETAL: No cyanosis, no edema. BACK: Nontender without obvious deformity. No CVA tenderness. Results - Labs CBC & Chem 7: 04/01/18 07:54 04/01/18 07:54 Laboratory Results - last 24 hr 03/31/18 03/31/18 03/31/18 11:01 11:19 15:50 WBC RBC Hgb Hct MCV MCH MCHC RDW Plt Count MPV Neut % (Auto) Lymph % (Auto) Falls % (Auto) Eos % (Auto) Baso % (Auto) Neut # (Auto) Lymph # (Auto) Falls # (Auto) Eos # (Auto) Baso # (Auto) WBC Differential Differential Comment APTT 33.9 H Sodium Potassium Chloride Carbon Dioxide Anion Gap BUN Creatinine Estimated GFR Random Glucose Calcium Calcium Adj for Albumin Total Bilirubin Direct Bilirubin Indirect Bilirubin AST ALT Alkaline Phosphatase Troponin I 0.88 H* B-Natriuretic Peptide 696 H Total Protein Albumin Triglycerides Cholesterol LDL Cholesterol, Calc HDL Cholesterol Cholesterol/HDL Ratio [facility] 03/31/18 03/31/18 04/01/18 15:50 21:56 00:05 WBC RBC Hgb Hct MCV MCH MCHC RDW Plt Count MPV Neut % (Auto) Lymph % (Auto) Falls % (Auto) Eos % (Auto) Baso % (Auto) Neut # (Auto) Lymph # (Auto) Falls # (Auto) Eos # (Auto) Baso # (Auto) WBC Differential Differential Comment APTT 45.6 H D Sodium Potassium Chloride Carbon Dioxide Anion Gap BUN Creatinine Estimated GFR Random Glucose Calcium Calcium Adj for Albumin Total Bilirubin Direct Bilirubin Indirect Bilirubin AST ALT Alkaline Phosphatase Troponin I 0.58 H D 0.36 H D B-Natriuretic Peptide Total Protein Albumin Triglycerides Cholesterol LDL Cholesterol, Calc HDL Cholesterol Cholesterol/HDL Ratio Carbamazepine 04/01/18 04/01/18 04/01/18 07:54 07:54 07:54 WBC 7.1 RBC 3.36 L Hgb 10.8 L Hct 32.3 L MCV 96.1 MCH 32.0 MCHC 33.3 RDW 13.7 Plt Count 474 H MPV 7.3 Neut % (Auto) 68.9 Lymph % (Auto) 18.7 Falls % (Auto) 5.5 Eos % (Auto) 6.6 H Baso % (Auto) 0.3 Neut # (Auto) 4.9 Lymph # (Auto) 1.3 Falls # (Auto) 0.4 Eos # (Auto) 0.5 H Baso # (Auto) 0.0 WBC Differential . Differential Comment Auto diff final APTT 45.0 H Sodium 139 Potassium 4.9 D Chloride 102 Carbon Dioxide 28.5 Anion Gap 9 BUN 18 Creatinine 1.39 H Estimated GFR 37 L Random Glucose 102 Calcium 9.0 D Calcium Adj for Albumin Total Bilirubin 0.2 Direct Bilirubin 0.1 Indirect Bilirubin 0.1 AST 19 ALT 15 Alkaline Phosphatase 60 Troponin I B-Natriuretic Peptide Total Protein 7.8 D Albumin 3.3 L Triglycerides 91 Cholesterol 313 H LDL Cholesterol, Calc 176 H HDL Cholesterol 119.2 H Cholesterol/HDL Ratio 2.62 Carbamazepine 8.9 04/01/18 07:54 WBC RBC Hgb Hct MCV MCH MCHC RDW Plt Count MPV Neut % (Auto) Lymph % (Auto) Falls % (Auto) Eos % (Auto) Baso % (Auto) Neut # (Auto) Lymph # (Auto) Falls # (Auto) Eos # (Auto) Baso # (Auto) WBC Differential Differential Comment APTT Sodium Cancelled Potassium Cancelled Chloride Cancelled Carbon Dioxide Cancelled Anion Gap Cancelled BUN Cancelled Creatinine Cancelled Estimated GFR Cancelled Random Glucose Cancelled Calcium Cancelled Calcium Adj for Albumin Cancelled Total Bilirubin Cancelled Direct Bilirubin Cancelled Indirect Bilirubin Cancelled AST Cancelled ALT Cancelled Alkaline Phosphatase Cancelled Troponin I B-Natriuretic Peptide Total Protein Cancelled Albumin Cancelled Triglycerides Cholesterol LDL Cholesterol, Calc HDL Cholesterol Cholesterol/HDL Ratio Carbamazepine Microbiology 03/31/18 14:10 Urine - Clean Catch Urine Legionella Antigen - Final Presumptive negative for Legionella pneumophila serogroup 1 antigen in urine, suggesting no recent or recurrent infection. Infection due to Legionella cannot be ruled out since other serogroups and species may cause disease, antigen may not be present in urine in early infection, and the level of antigen present in the urine may be below the detection limit of the test. Assessment and Plan - Plan This is a 77-year-old female with history of seizures presenting with chronic shortness of breath which worsened in the last few days //Shortness of breath //Acute diastolic congestive heart failure //possible pulmonary fibrosis, r/o PNA -check BNP, chest x-ray did not show any pulmonary edema, chest CTA negative for PE, not the best study though. Consult pulmonary, possible pulmonary fibrosis given coarse crackles on exam start duo nebs [id number] and as needed, will eventually need pulmonary function tests. There is also no evidence of pleural effusion. Patient has leukocytosis but no evidence of pneumonia on imaging, check sputum culture, check Legionella antigen. Rapid flu negative. Check echocardiogram, start Solu -Medrol. Doubt aggressive infection due to time frame of symptoms, hold off azithromycin and CTX for now. Tessalon for symptomatic management. = BNP in the 600s. Echocardiogram with normal EF. Will start a Zithromax. Patient drinking aggressively. Lasix last night. Pulmonology and cardiology following. Fluid restrictions. Monitor. //Renal insufficiency. Creatinine slightly up to 1.39 today. Will monitor. //Mild troponin elevation-serial EKG and troponin, consult cardiology, patient denies any chest pain, check echocardiogram as above. Start aspirin. Check lipid profile, continue heparin. = Appreciate cardiology assistance. LDL elevated. Cardiology following. Plan is for cardiac perfusion scan when patient can lie flat //Seizures-patient had an aura prior to admission, continue home AEDs, check carbamazepine level.-Within normal limits Hypokalemia-replace DVT prophylaxis: Heparin Discussed Condition With: Patient, Nurse, family bedside Discharge Planning: Home pending improvement.
[2018-04-01] MEDS: Azithromycin 250 MG Tablet PO SCH (11:57)
--- NOTE | 2018-04-01 12:06 | ECG ---
Date Performed: 03/31/2018 Time Performed: 12:10:40 PTAGE: 77 years EKG: Sinus tachycardia Normal ECG except for rate Since the PREVIOUS TRACING , no significant change noted PREVIOUS TRACIN03/31/2018 06.12 DOCTOR: Naresh Yang Interpretating Date/Time 04/01/2018 12:01:25
--- NOTE | 2018-04-01 18:22 | P.PNPL ---
Subjective Interval history: 77 YOWF with Persistant cough, sob had cardiac cath Has cough, small amount of sp No fever Physical Exam Vital signs: Vital Signs 03/31/18 20:00 03/31/18 20:15 03/31/18 22:00 Temperature 97.6 F Pulse Rate 87 82 104 H Respiratory Rate 19 17 Blood Pressure 136/74 Pulse Oximetry 96 97 03/31/18 23:00 04/01/18 00:00 04/01/18 00:32 Temperature 98.5 F Pulse Rate 86 82 83 Respiratory Rate 16 16 Blood Pressure 99/53 L Pulse Oximetry 04/01/18 01:00 04/01/18 02:00 04/01/18 03:00 Temperature Pulse Rate 82 84 78 Respiratory Rate Blood Pressure Pulse Oximetry 04/01/18 04:00 04/01/18 05:00 04/01/18 06:00 Temperature 98.6 F Pulse Rate 75 76 79 Respiratory Rate 14 Blood Pressure 99/46 L Pulse Oximetry 100 04/01/18 07:00 04/01/18 08:00 04/01/18 09:00 Temperature 98.1 F Pulse Rate 74 86 82 Respiratory Rate 22 Blood Pressure 117/56 L Pulse Oximetry 100 04/01/18 10:00 04/01/18 11:00 04/01/18 11:54 Temperature 97.4 F L Pulse Rate 102 H 84 75 Respiratory Rate 18 Blood Pressure 113/61 Pulse Oximetry 99 04/01/18 12:00 04/01/18 12:21 04/01/18 13:00 Temperature Pulse Rate 92 H 90 Respiratory Rate Blood Pressure Pulse Oximetry 97 04/01/18 13:25 04/01/18 14:00 04/01/18 15:00 Temperature Pulse Rate 83 88 92 H Respiratory Rate 20 Blood Pressure Pulse Oximetry 04/01/18 15:41 04/01/18 16:00 04/01/18 17:00 Temperature 97.9 F Pulse Rate 82 86 86 Respiratory Rate 18 Blood Pressure 116/67 Pulse Oximetry 96 04/01/18 18:00 Temperature Pulse Rate 98 H Respiratory Rate Blood Pressure Pulse Oximetry Intake & Output 03/31/18 04/01/18 04/01/18 18:59 06:59 18:59 Intake Total 370 / 370 150 / 150 Balance 370 / 370 150 / 150 Weight 55.3 kg Intake: IV 250 / 250 150 / 150 Heparin/D5W 25,000 U/250 mL 25, 250 / 250 150 / 150 000 unit In 250 ml @ Per Protocol IV.CONT TITRATE PRN Rx #:[id number] Oral 120 / 120 Other: # Voids 1 Date of Last Bowel Movement 03/30/18 03/30/18 GENERAL: Elderly WF, NAD SKIN: Warm and dry. HEAD: Normocephalic. EYES: No scleral icterus. No injection or drainage. NECK: Supple, trachea midline. No JVD or lymphadenopathy. CARDIOVASCULAR: Regular rate and rhythm without murmurs, gallops, or rubs. RESPIRATORY: Breath sounds equal bilaterally. No accessory muscle use. GASTROINTESTINAL: Abdomen soft, non-tender, nondistended. MUSCULOSKELETAL: No cyanosis, or edema. BACK: Nontender without obvious deformity. No CVA tenderness. Assessment and Plan - Plan IMPRESSION: 1. Persistent cough, possible reactive airway disease. Need to rule out aberrant bronchial asthma. 2. Migraine headache. 3. Seizure disorder. 4. Anxiety. 5. Increased troponin. PLAN: Aerosol nebs IV Solumedrol Cont Abx Change to PO steroids in AM Stable on RA.
[2018-04-01] MEDS: Montelukast 10 MG Tablet PO SCH (20:56)
[2018-04-01] MEDS: traZODone 100 MG Tablet PO SCH (20:56)
[2018-04-02] MEDS: guaiFENesin/Codeine Syrup 200 MG/20 MG 10 ML UDC PO SCH ×5 (00:29→22:42)
[2018-04-02] MEDS: MethylPREDNISolone Sod Succinate Inj 40 MG/ML Vial IV.PUSH SCH ×2 (06:18→13:23)
[2018-04-02 08:12] LABS: Baso % (Auto) 0.3 % (0.0-2.0); Eos # (Auto) 0.1 th/mm3 (0.0-0.4); Eos % (Auto) 0.9 % (0.0-4.0); Hematocrit 29.9 % (35.0-46.0); Hemoglobin 10.1 gm/dL (11.6-15.3); Lymph # (Auto) 1.4 th/mm3 (1.0-4.8); Lymph % (Auto) 23.6 % (9.0-44.0); Mean Corpuscular Volume 97.2 fL (80.0-100.0); Mean Platelet Volume 6.9 fL (7.0-11.0); Mono # (Auto) 0.5 th/mm3 (0.0-0.9); Neut % (Auto) 67.2 % (16.0-70.0); Platelet Count 449 th/mm3 (150-450); Red Blood Count 3.07 mil/mm3 (4.00-5.30); Red Cell Distribution Width 13.9 % (11.6-17.2)
[2018-04-02 08:36] LABS: Albumin 3.1 g/dL (3.4-5.0); Calcium 8.3 mg/dL (8.5-10.1); Magnesium 2.5 mg/dL (1.5-2.5); Potassium 4.1 meq/L (3.5-5.1)
[2018-04-02] MEDS: Benzonatate 100 MG Capsule PO PRN (08:59)
[2018-04-02] MEDS: carBAMazepine 200 MG Tablet PO SCH ×3 (08:59→18:26)
[2018-04-02] MEDS: Pantoprazole Sodium 20 MG DR Tablet PO SCH (09:00)
[2018-04-02] MEDS: Azithromycin 250 MG Tablet PO SCH (09:00)
[2018-04-02] MEDS: Aspirin 325 MG Tablet PO SCH (09:00)
[2018-04-02] MEDS ORDERED: Sod Chloride 0.9% Inj 1,000 ML IV.CONT SCH (15:00)
--- NOTE | 2018-04-02 15:04 | P.PNIM ---
Subjective Interval history: The patient was resting comfortably in bed. She was having intermittent coughing fits. Her family was at the bedside. The patient said her breathing was slowly getting better. She was taking codeine. She did see a media supervisor. Physical Exam Vital signs: Vital Signs 04/01/18 15:00 04/01/18 15:41 04/01/18 16:00 Temperature 97.9 F Pulse Rate 92 H 82 86 Respiratory Rate 18 Blood Pressure 116/67 Pulse Oximetry 96 04/01/18 17:00 04/01/18 18:00 04/01/18 19:00 Temperature Pulse Rate 86 98 H 86 Respiratory Rate Blood Pressure Pulse Oximetry 04/01/18 19:43 04/01/18 20:00 04/01/18 21:00 Temperature 98 F Pulse Rate 83 94 H 100 H Respiratory Rate 22 16 Blood Pressure 123/70 Pulse Oximetry 98 96 04/01/18 22:00 04/01/18 23:00 04/02/18 00:00 Temperature 98.2 F Pulse Rate 104 H 100 H 98 H Respiratory Rate 19 Blood Pressure 103/52 L Pulse Oximetry 94 L 04/02/18 00:21 04/02/18 01:00 04/02/18 02:00 Temperature Pulse Rate 88 108 H 96 H Respiratory Rate 16 Blood Pressure Pulse Oximetry 04/02/18 03:00 04/02/18 04:00 04/02/18 05:00 Temperature 97.6 F Pulse Rate 92 H 89 82 Respiratory Rate 18 Blood Pressure 103/60 Pulse Oximetry 94 L 04/02/18 06:00 04/02/18 07:27 04/02/18 08:00 Temperature 97.8 F Pulse Rate 87 83 106 H Respiratory Rate 16 22 Blood Pressure 136/80 Pulse Oximetry 93 L 97 04/02/18 11:19 04/02/18 13:01 Temperature 97.2 F L Pulse Rate 90 106 H Respiratory Rate 18 22 Blood Pressure 130/78 Pulse Oximetry 94 L Intake & Output 04/01/18 04/02/18 04/02/18 18:59 06:59 18:59 Intake Total 150 / 150 1480 / 1480 Output Total 1080 / 1080 Balance 150 / 150 400 / 400 Weight 54.8 kg Intake: IV 150 / 150 Heparin/D5W 25,000 U/250 mL 25, 150 / 150 000 unit In 250 ml @ Per Protocol IV.CONT TITRATE PRN Rx #:[id number] Oral 1480 / 1480 Output: Urine 1080 / 1080 Other: Date of Last Bowel Movement 03/30/18 Narrative: GENERAL: Patient sitting up in bed with a dry cough. SKIN: Warm and dry. HEAD: Normocephalic. EYES: No scleral icterus. No injection or drainage. NECK: Supple, trachea midline. No JVD. CARDIOVASCULAR: Regular rate and rhythm without murmurs, gallops, or rubs. RESPIRATORY: Decreased breath sounds. GASTROINTESTINAL: Abdomen soft, non-tender, nondistended. MUSCULOSKELETAL: No cyanosis, no edema. BACK: Nontender without obvious deformity. No CVA tenderness. Results Labs CBC & Chem 7: 04/02/18 06:42 04/02/18 06:42 Labs: Microbiology 03/31/18 18:15 Sputum - Expectorated Sputum Gram Stain - Final 03/31/18 18:15 Sputum - Expectorated Sputum Sputum Culture - Final Heavy growth normal respiratory maria teresa Assessment and Plan (1) Elevated troponin: Code(s): R74.8 - Abnormal levels of other serum enzymes Status: Acute Plan This is a 77-year-old female with history of seizures presenting with chronic shortness of breath which worsened in the last few days Shortness of breath/Acute diastolic congestive heart failure/possible pulmonary fibrosis Chest x-ray did not show any pulmonary edema, chest CTA negative for PE. Pulmonary consult appreciated. Patient has leukocytosis but no evidence of pneumonia on imaging. Rapid flu negative. Echocardiogram with EF 50-55%. -prednisone. -Tessalon and codeine for symptomatic management. -continue Zithromax. -PT eval. Renal insufficiency Creatinine slightly up. -IVFs. -Will monitor. -avoid nephrotoxins. Mild troponin elevation Cardiology consult appreciated. -stress test when pt can lie flat. -LDL elevated. Add statin. -Continue aspirin. Seizures Patient had an aura prior to admission. -continue home AEDs. DVT prophylaxis: Heparin Progress Note: Quality VTE Deep Vein Thrombosis/Pulmonary Embolism Present on Admission: No
[2018-04-02] MEDS: predniSONE 20 MG Tablet PO SCH (21:02)
[2018-04-02] MEDS: Montelukast 10 MG Tablet PO SCH (21:03)
[2018-04-02] MEDS: traZODone 100 MG Tablet PO SCH (21:03)
[2018-04-03] MEDS: guaiFENesin/Codeine Syrup 200 MG/20 MG 10 ML UDC PO SCH ×5 (00:27→23:26)
[2018-04-03] MEDS: carBAMazepine 200 MG Tablet PO SCH ×3 (10:14→17:21)
[2018-04-03] MEDS: Pantoprazole Sodium 20 MG DR Tablet PO SCH (10:14)
[2018-04-03] MEDS: Azithromycin 250 MG Tablet PO SCH (10:14)
[2018-04-03] MEDS: Benzonatate 100 MG Capsule PO PRN (10:14)
[2018-04-03] MEDS: Aspirin 325 MG Tablet PO SCH (10:14)
[2018-04-03] MEDS: predniSONE 20 MG Tablet PO SCH ×2 (10:15→20:48)
--- NOTE | 2018-04-03 11:48 | MG ---
cc: Andria Carpio MD AGE: [id number] years old. EEG NUMBER: [id number] REFERRING PHYSICIAN: VIGNESH Sosa ROOM: [id number] With photic stimulation. Family of the patient states that the photic light gives her a headache, migraine. Had to cross her legs during the study to provoke a possible aura with drowsy sleep study, oriented. History of epilepsy, migraines. The patient has been having auras in her feet and goes up to the body. On aspirin, Tegretol and other medicines as per description of record. The patient has normal background of 9 Hz, 20-60 microvolts. Quite a bit of artifact from moving and talking. This hence makes the EEG disorganized. Photic stimulation does elicit the driving response and artifact superimposed. Difficult to assess truly if there is any epileptiform features. The patient then crosses her legs. I do not see any significant change with that. As stated, hyperventilation could not be done. IMPRESSION: Overall unremarkable electroencephalogram for any epileptiform features. Normal alpha rhythm. Clinical correlation. Andria Carpio MD DF/sv/kd , 06:39 AM , 06:44 AM
[2018-04-03 14:27] LABS: Hematocrit 30.6 % (35.0-46.0); Hemoglobin 10.3 gm/dL (11.6-15.3); Mean Corpuscular HGB Conc 33.8 % (32.0-36.0); Mean Corpuscular Volume 97.8 fL (80.0-100.0); Mean Platelet Volume 6.8 fL (7.0-11.0); Platelet Count 458 th/mm3 (150-450); Red Blood Count 3.13 mil/mm3 (4.00-5.30); Red Cell Distribution Width 14.3 % (11.6-17.2); White Blood Count 7.5 th/mm3 (4.0-11.0)
[2018-04-03 14:48] LABS: Calcium 8.3 mg/dL (8.5-10.1); Magnesium 2.2 mg/dL (1.5-2.5)
[2018-04-03] MEDS ORDERED: Regadenoson Inj 0.4 MG/5 ML Syringe IV.PUSH ONE (15:36)
--- NOTE | 2018-04-03 15:40 | P.PNIM ---
Subjective Interval history: The patient said that she was feeling better. She can lay flat for periods of time. She is still coughing. Family at the bedside. Hopeful to have the stress test tomorrow. Physical Exam Vital signs: Vital Signs 04/02/18 16:00 04/02/18 17:00 04/02/18 18:00 Temperature 97.4 F L Pulse Rate 88 88 90 Respiratory Rate 18 Blood Pressure 135/86 Pulse Oximetry 97 04/02/18 19:00 04/02/18 20:00 04/02/18 20:18 Temperature 97.5 F L Pulse Rate 88 80 94 H Respiratory Rate 18 18 Blood Pressure 129/75 Pulse Oximetry 91 L 96 04/02/18 21:00 04/02/18 22:00 04/02/18 23:00 Temperature Pulse Rate 88 86 97 H Respiratory Rate Blood Pressure Pulse Oximetry 04/02/18 23:45 04/03/18 00:00 04/03/18 01:00 Temperature 97.6 F Pulse Rate 100 H 84 80 Respiratory Rate 18 Blood Pressure 116/66 Pulse Oximetry 93 L 04/03/18 02:00 04/03/18 03:00 04/03/18 04:00 Temperature Pulse Rate 80 79 78 Respiratory Rate 18 Blood Pressure 99/55 L Pulse Oximetry 93 L 04/03/18 05:00 04/03/18 05:42 04/03/18 06:00 Temperature Pulse Rate 80 108 H 62 Respiratory Rate 22 Blood Pressure Pulse Oximetry 04/03/18 07:00 04/03/18 08:00 04/03/18 09:00 Temperature 98.2 F Pulse Rate 89 90 96 H Respiratory Rate 20 Blood Pressure 125/69 Pulse Oximetry 93 L 04/03/18 10:00 04/03/18 11:00 04/03/18 11:25 Temperature Pulse Rate 80 84 82 Respiratory Rate 22 Blood Pressure Pulse Oximetry 04/03/18 12:00 Temperature 98.2 F Pulse Rate 86 Respiratory Rate 18 Blood Pressure 151/83 H Pulse Oximetry 99 Intake & Output 04/02/18 04/03/18 04/03/18 18:59 06:59 18:59 Intake Total 2740 / 2740 Output Total 1600 / 1600 Balance 1140 / 1140 Weight 54.6 kg Intake: IV 1000 / 1000 NS Inj 1,000 ML @ 125 mls/hr IV 1000 / 1000 .CONT .Q8H [facility] Rx#:[id number] Oral 1740 / 1740 Output: Urine 1600 / 1600 Other: Date of Last Bowel Movement 03/30/18 03/30/18 03/30/18 Narrative: GENERAL: No apparent distress. SKIN: Warm and dry. HEAD: Normocephalic. EYES: No scleral icterus. No injection or drainage. NECK: Supple, trachea midline. No JVD. CARDIOVASCULAR: Regular rate and rhythm without murmurs, gallops, or rubs. RESPIRATORY: Decreased breath sounds. GASTROINTESTINAL: Abdomen soft, non-tender, nondistended. MUSCULOSKELETAL: No cyanosis, no edema. BACK: Nontender without obvious deformity. No CVA tenderness. Results Labs CBC & Chem 7: 04/03/18 14:11 04/03/18 14:11 Assessment and Plan (1) Elevated troponin: Code(s): R74.8 - Abnormal levels of other serum enzymes Status: Acute Plan This is a 77-year-old female with history of seizures presenting with chronic shortness of breath which worsened in the last few days Shortness of breath/Acute diastolic congestive heart failure/possible pulmonary fibrosis Chest x-ray did not show any pulmonary edema, chest CTA negative for PE. Pulmonary consult appreciated. Patient has leukocytosis but no evidence of pneumonia on imaging. Rapid flu negative. Echocardiogram with EF 50-55%. -prednisone. -Tessalon and codeine for symptomatic management. -continue Zithromax. -PT following. Renal insufficiency Creatinine slightly up. -IVFs. -Will monitor. -avoid nephrotoxins. Mild troponin elevation Cardiology consult appreciated. -stress test in AM. N.p.o. at midnight. -LDL elevated. Added statin. -Continue aspirin. Seizures Patient had an aura prior to admission. EEG unremarkable. -continue home AEDs. DVT prophylaxis: Heparin Progress Note: Quality VTE Deep Vein Thrombosis/Pulmonary Embolism Present on Admission: No
[2018-04-03] MEDS ORDERED: Sod Chloride 0.9% Inj 1,000 ML IV.CONT SCH (15:41)
[2018-04-03] MEDS: traZODone 100 MG Tablet PO SCH (20:48)
[2018-04-03] MEDS: Montelukast 10 MG Tablet PO SCH (20:48)
[2018-04-04] MEDS: Benzonatate 100 MG Capsule PO PRN (03:31)
[2018-04-04] MEDS: guaiFENesin/Codeine Syrup 200 MG/20 MG 10 ML UDC PO SCH ×2 (06:07→12:11)
--- NOTE | 2018-04-04 08:15 | P.PNCA ---
Subjective Interval history: Feels "much better". Dyspnea much improved. No CP, dizziness, palpitations. Slept well. Able to lie flat now. Medications and Allergies Active Medications: Active Cardiac Medications Aspirin (Aspirin) 325 mg PO DAILY [facility] Last Admin: 04/03/18 10:14 Dose: 325 mg Atorvastatin Calcium (Lipitor) 40 mg PO HS [facility] Last Admin: 04/03/18 20:48 Dose: 40 mg Allergies Allergy/AdvReac Type Severity Reaction Status Date / Time No Known Allergies Allergy Verified 03/30/18 23:01 Home Medications Medication Instructions Recorded Confirmed Type albuterol sulfate [Ventolin HFA] 1 puff INHALATION Q6H PRN 03/30/18 03/30/18 History carbamazepine 200 mg PO TID 03/30/18 03/30/18 History cyanocobalamin (vitamin B-12) 1,000 mcg PO DAILY 03/30/18 03/30/18 History [Vitamin B-12] omeprazole 20 mg PO DAILY 03/30/18 03/30/18 History sumatriptan succinate 100 mg PO DAILY PRN 03/30/18 03/30/18 History trazodone 150 mg PO DAILY 03/30/18 03/30/18 History Physical Exam Vital signs: Vital Signs 04/03/18 09:00 04/03/18 10:00 04/03/18 11:00 Temperature Pulse Rate 96 H 80 84 Respiratory Rate Blood Pressure Pulse Oximetry 04/03/18 11:25 04/03/18 12:00 04/03/18 13:00 Temperature 98.2 F Pulse Rate 82 86 98 H Respiratory Rate 22 18 Blood Pressure 151/83 H Pulse Oximetry 99 04/03/18 14:00 04/03/18 15:00 04/03/18 15:41 Temperature 97.6 F Pulse Rate 90 79 83 Respiratory Rate 20 Blood Pressure 130/72 Pulse Oximetry 95 04/03/18 16:00 04/03/18 17:00 04/03/18 18:00 Temperature Pulse Rate 86 88 86 Respiratory Rate Blood Pressure Pulse Oximetry 04/03/18 19:00 04/03/18 19:39 04/03/18 20:00 Temperature 98.5 F Pulse Rate 90 83 98 H Respiratory Rate 16 18 Blood Pressure 118/60 Pulse Oximetry 93 L 04/03/18 21:00 04/03/18 22:00 04/03/18 23:00 Temperature Pulse Rate 88 88 92 H Respiratory Rate Blood Pressure Pulse Oximetry 04/04/18 00:00 04/04/18 01:00 04/04/18 02:00 Temperature 98.3 F Pulse Rate 82 84 81 Respiratory Rate 18 Blood Pressure 108/57 L Pulse Oximetry 91 L 04/04/18 03:00 04/04/18 04:00 04/04/18 05:00 Temperature 98.5 F Pulse Rate 89 98 H 90 Respiratory Rate 18 Blood Pressure 106/60 Pulse Oximetry 90 L 04/04/18 06:00 04/04/18 07:00 04/04/18 07:39 Temperature Pulse Rate 84 83 113 H Respiratory Rate 16 Blood Pressure Pulse Oximetry 95 Intake & Output 04/03/18 04/04/18 04/04/18 18:59 06:59 18:59 Intake Total 2790 / 2790 Output Total 1700 / 1700 Balance 1090 / 1090 Weight 54.6 kg Intake: IV 1000 / 1000 NS Inj 1,000 ML @ 100 mls/hr IV 1000 / 1000 .CONT .Q10H [facility] Rx#:[id number] Oral 1790 / 1790 Output: Urine 1700 / 1700 Other: # Incontinent Voids 2 Date of Last Bowel Movement 03/30/18 03/30/18 - Constitutional no acute distress - Routine Neck Exam Absent: JVD - Routine Respiratory Exam Present: CTA bilaterally - Routine Cardiovascular Exam Present: RRR, S1, S2. Absent: murmur, gallop - Routine Abdominal Exam Present: soft, normoactive bowel sounds. Absent: tenderness Results 04/03/18 14:11 04/03/18 14:11 CBC 04/02/18 04/03/18 Range/Units 06:42 14:11 WBC 6.0 7.5 (4.0-11.0) th/mm3 RBC 3.07 L 3.13 L (4.00-5.30) mil/mm3 Hgb 10.1 L 10.3 L (11.6-15.3) gm/dL Hct 29.9 L 30.6 L (35.0-46.0) % Plt Count 449 458 H (150-450) th/mm3 Neut # (Auto) 4.0 (1.8-7.7) th/mm3 Lymph # (Auto) 1.4 (1.0-4.8) th/mm3 Pratt # (Auto) 0.5 (0.0-0.9) th/mm3 Eos # (Auto) 0.1 (0.0-0.4) th/mm3 Baso # (Auto) 0.0 (0.0-0.2) th/mm3 Comprehensive Metabolic Panel 04/02/18 04/03/18 Range/Units 06:42 14:11 Sodium 139 137 (136-145) meq/L Potassium 4.1 D 4.0 (3.5-5.1) meq/L Chloride 102 102 (98-107) meq/L Carbon Dioxide 30.0 27.0 (21.0-32.0) meq/L BUN 23 H 21 H (7-18) mg/dL Creatinine 1.52 H 1.38 H (0.50-1.00) mg/dL Calcium 8.3 L 8.3 L (8.5-10.1) mg/dL Albumin 3.1 L (3.4-5.0) g/dL Intake and Output 04/03/18 04/04/18 04/04/18 22:59 06:59 14:59 Intake Total 1550 / 1550 1240 / 1240 Output Total 600 / 600 1100 / 1100 Balance 950 / 950 140 / 140 Intake: IV 1000 / 1000 NS Inj 1,000 ML @ 100 mls/hr IV 1000 / 1000 .CONT .Q10H [facility] Rx#:[id number] Oral 1550 / 1550 240 / 240 Output: Urine 600 / 600 1100 / 1100 Other: # Incontinent Voids 2 Date of Last Bowel Movement 03/30/18 03/30/18 Weight 54.6 kg Assessment and Plan - Assessment (1) Elevated troponin Code(s): R74.8 - Abnormal levels of other serum enzymes Status: Acute Plan: Cardiac status stable over the weekend. No definite angina symptoms. Troponin levels minimally elevated. Patient now able to lie flat for nuclear stress testing. Echo unremarkable. Recommend await nuclear stress test results. Unless severe or extensive ischemia demonstrated, recommend medical therapy. - Plan Code Status: full code Discussed Condition With: patient
[2018-04-04 09:22] LABS: Calcium 7.8 mg/dL (8.5-10.1); Carbon Dioxide 27.5 meq/L (21.0-32.0); Potassium 3.9 meq/L (3.5-5.1)
[2018-04-04] MEDS: Pantoprazole Sodium 20 MG DR Tablet PO SCH (09:37)
[2018-04-04] MEDS: Aspirin 325 MG Tablet PO SCH (09:37)
[2018-04-04] MEDS: carBAMazepine 200 MG Tablet PO SCH ×2 (09:37→12:11)
[2018-04-04] MEDS: predniSONE 20 MG Tablet PO SCH (09:37)
[2018-04-04] MEDS: Azithromycin 250 MG Tablet PO SCH (09:38)
[2018-04-04 12:17] VITALS: BP 141/66; TEMP 97.9
[2018-04-04 12:30] VITALS: RESP 20
--- NOTE | 2018-04-04 13:42 | NM ---
EXAM DATE: 04/04/2018 12:03 PM EST AGE/SEX: 77 years / Female INDICATIONS:Angina. Myocardial infarction CLINICAL DATA: This is the patient's initial encounter. Patient reports that signs and symptoms have been present for 2 days and indicates a pain score of 4/10. MEDICAL/SURGICAL HISTORY: Seizures. Appendectomy. Inguinal hernia repair. COMPARISON: No prior exams available for comparison. DOSE: 8.2 mCi Tc 99m Myoview at rest 25.4 mCi [id number] at stress 0.4 mg Lexiscan STRESS SYMPTOMS: Dyspnea. EJECTION FRACTION: 70 % TECHNIQUE: The patient underwent pharmacologic stress with infusion of prescribed dose. Continuous ECG tracing was monitored during stress. Gated SPECT imaging was performed after stress and conventi onal SPECT imaging was performed at rest. The examination was performed on a SPECT/CT scanner, both attenuation and non-corrected datasets were reviewed. Motion correction processing was applied. FINDINGS: Distribution: The maximum perfused segment at stress is in the anterobasal wall. Mild diaphragmatic attenuation in the apical inferior segment. Perfusion Study: The pattern of perfusion at stress is within normal limits, with regional variatio ns perfusion within 30%. The pattern of perfusion at stress and rest is unchanged without evidence of redistribution. Gated Study: There are intact wall motion and wall thickening without hypokinetic or dyskinetic segm ents. The ejection fraction is calculated at 70%. RISK CATEGORY: Low (<1% Annual Mortality Rate) CONCLUSION: 1. No evidence of stress-induced ischemia. 2. Intact wall motion with 70% ejection fraction. Electronically signed by: Sal Rodriguez MD Board Certified Radiologist 04/04/2018 1:41 PM EST
--- NOTE | 2018-04-04 14:07 | P.DCO ---
Diagnosis (1) Elevated troponin: Status: Acute (2) Hypoxia: Status: Acute Physical Therapy Order: Evaluate and treat, Improve ambulation and Strength and gait training Home Health Nursing Order: Medical education, Signs/symptoms of disease process, Oxygen administration education, Medication education-adverse effect and Nursing assessment with vital signs Case Management Consult Case Management Consult-Home Health: Yes I have seen patient Siri Maya on 04/04/18. My clinical findings support the need for the requested home health care services because: Limited mobility due to disease progression and Patient has SOB I certify that my clinical findings support that this patient is homebound because: Unsafe to leave home unassisted
--- NOTE | 2018-04-04 14:16 | P.DS ---
DS: Providers Date of admission: 03/31/18 01:51 Primary care physician: Jose Mcclain MD Consults: 03/31/18 10:10 Consult to Cardiology Routine Consulting Provider: Dc Mendieta Does the patient have a Diesel Fitter Mechanic who follows them?: No Preferred Procedures Rn:: Certified Midwife Physician Reason for Consultation: Trop elevation Notified:: Office Spoke with:: meseret Date Notified:: 03/31/18 Time Notified:: 10:25 Ordering Provider: TESSA Consult to Pulmonology Routine Consulting Provider: Ruben Garcia Reason for Consultation: ? pulmnonary fibrosis Notified:: Office Spoke with:: barbara Date Notified:: 03/31/18 Time Notified:: 10:28 Ordering Provider: TESSA 03/31/18 13:56 HUB Only Consult Order Routine Consulting Provider: Ashlye Ramirez Anticipated date of discharge: 04/04/18 Brief History from admission: This is a 77-year-old female with history of seizures, no other significant comorbidities presenting with shortness of breath and cough which has been going on since December 2017. Per patient, outpatient workup has already been done, there is no diagnosis yet as to the etiology of her shortness of breath. She has been given Ventolin with minimal improvement. This is progressively worsened during the last few weeks. Last night, patient had a coughing spell and she called her son who brought her to the hospital. She also had an episode of aura that usually comes with her seizure but she did not have any involuntary rhythmic movements of her extremities but felt numbness of both lower extremities. She denies any chest pain, palpitations, nausea, vomiting, fever, chills, diarrhea or urinary symptoms. She however started having left lower quadrant pain when she coughs about 1 week ago. Past medical history Please see past medical history section, in addition, she was found to have a hiatal hernia No previous history of surgery Family history Both parents from heart attacks at late 70s Both sisters had cancer, one had pancreatic cancer, another one had a throat cancer Patient never a smoker, no significant alcohol use. Patient update on day of discharge: The patient was anxious to hear her results of the stress test. She said she had a coughing fit down there. She said that she would like some nebulizers. She would also like Robitussin-AC for home. Her family was at the bedside and their questions were answered. Discussed with nursing. DS: Diagnosis Discharge Diagnosis (1) Elevated troponin: Status: Acute (2) Hypoxia: Status: Acute DS: Summary Shortness of breath/Acute diastolic congestive heart failure/possible pulmonary fibrosis This is a 77-year-old female with a history of seizures presenting with chronic shortness of breath which worsened in the last few days. Chest x-ray did not show any pulmonary edema, chest CTA negative for PE. Pulmonary was consulted. Rapid flu negative. Echocardiogram with EF 50-55%. She was started on steroids. We started Tessalon Perles and codeine for her cough. We continued Zithromax. She worked with physical therapy. She will be discharged with home health care. She had a home oxygen walk test prior to discharge. Case management was consulted. She will continue a prednisone taper. She will follow up with pulmonology as an outpt. She was discharged with [facility]. E- [facility] was checked but the website was down. Acute kidney failure Creatinine improved with IVFs. We avoided nephrotoxins. Troponin elevation Cardiology was consulted. LDL was elevated and she was started on a statin. Stress test was negative. She will continue a baby ASA and will follow up with her PCP. Seizures Patient had an aura prior to admission. EEG unremarkable. We continued her home AEDs. Time Spent with Patient Total time spent providing and/or coordinating discharge services: Greater than 30 minutes Quality: VTE Deep Vein Thrombosis/Pulmonary Embolism Present on Admission: No Exam Narrative Exam Narrative: GENERAL: No apparent distress. SKIN: Warm and dry. HEAD: Normocephalic. EYES: No scleral icterus. No injection or drainage. NECK: Supple, trachea midline. No JVD. CARDIOVASCULAR: Regular rate and rhythm without murmurs, gallops, or rubs. RESPIRATORY: Decreased breath sounds. Diffuse wheezing and rhonchi. GASTROINTESTINAL: Abdomen soft, non-tender, nondistended. MUSCULOSKELETAL: No cyanosis, no edema. BACK: Nontender without obvious deformity. No CVA tenderness. Results Labs on day of discharge: Labs from last 24 hours 04/04/18 04/03/18 04/03/18 07:03 14:11 14:11 WBC 7.5 RBC 3.13 L Hgb 10.3 L Hct 30.6 L MCV 97.8 MCH 33.0 MCHC 33.8 RDW 14.3 Plt Count 458 H MPV 6.8 L Sodium 140 137 Potassium 3.9 4.0 Chloride 106 102 Carbon Dioxide 27.5 27.0 Anion Gap 7 8 BUN 19 H 21 H Creatinine 1.03 H 1.38 H Estimated GFR 52 L 37 L Random Glucose 96 125 H Calcium 7.8 L 8.3 L Magnesium 2.2 Impressions ITS Impressions Chest X-Ray 03/30/18 22:53 CONCLUSION: 1. No acute cardiopulmonary abnormality is identified. 2. Stable hiatal hernia. Chest CTA 03/31/18 00:14 CONCLUSION: 1. Examination of the pulmonary arteries is less than optimal in the lower lobe secondary to respiratory motion artifact. The vessels that are adequately evaluated demonstrate no PE. 2. Stable hiatal hernia. Myocardial Perfusion Scan Nuc Med 04/04/18 00:00 CONCLUSION: 1. No evidence of stress-induced ischemia. 2. Intact wall motion with 70% ejection fraction. Discharge Plan Discharge Disposition Patient Disposition: W/Home Health Service Discharge Condition Condition: Stable Discharge Order Discharge Orders: Discharge Order (Routine); Ordered 04/04/18 Ordered By: Gerard Blount Discharge Details Anticipated Discharge Date: 04/04/18 Discharge Comment: OK to discharge after home oxygen walk test thanks Physicians Team ED Provider: Cindy Goldberg Primary Care Provider: Jose Mcclain Attending Provider: Gerard Blount Other Providers: Dc Mendieta ; Ruben Garcia ; Ashley Ramirez Rxs /Orders / Referrals /Forms Prescriptions: New atorvastatin 40 mg Tablet 40 mg PO HS Qty: 30 RF: 0 ipratropium-albuterol 0.5 mg-3 mg(2.5 mg base)/3 mL Solution For Nebulization 1 amp NEB Q4HR NEB PRN (Reason: Sbp > Or = 100, Hr > Or = 60) 30 Days Qty: 30 RF: 0 azithromycin 250 mg Tablet 250 mg PO Q24H Qty: 2 RF: 0 prednisone 20 mg Tablet 20 mg PO BID Qty: 6 RF: 0 codeine-guaifenesin 10-100 mg/5 mL Liquid 10 ml PO Q6H Qty: 118 RF: 0 aspirin 81 mg tablet,delayed release (DR/EC) 81 mg PO DAILY Qty: 30 RF: 0 prednisone 20 mg tablet 20 mg PO DAILY Qty: 5 RF: 0 Continue sumatriptan succinate 100 mg Tablet 100 mg PO DAILY PRN (Reason: migraines) RF: 0 cyanocobalamin (vitamin B-12) [Vitamin B-12] 1,000 mcg Tablet 1,000 mcg PO DAILY RF: 0 carbamazepine 200 mg Tablet 200 mg PO TID RF: 0 trazodone 150 mg Tablet 150 mg PO DAILY RF: 0 omeprazole 20 mg Capsule,Delayed Release(Dr/Ec) 20 mg PO DAILY RF: 0 albuterol sulfate [Ventolin HFA] 90 mcg/actuation Hfa Aerosol Inhaler 1 puff INHALATION Q6H PRN (Reason: Wheezing) RF: 0 Ambulatory Orders / Order Sets / DME: Oxygen Tank (2 liter) (Routine) Location: Determined by Patient Ordered By: Gerard Blount Nebulizer Adult Kit (1 kit) (Routine) Location: Determined by Patient Ordered By: Gerard Blount Referrals: Ruben Garcia MD [Physician] - See Instructions (1-2 weeks) Jose Mcclain MD [Primary Care Provider] - See Instructions (One week) [facility], [Agency] - See Instructions Discharge Instructions Patient Printed Instructions: Prednisone (By mouth), Aspirin (By mouth), Azithromycin (By mouth), Atorvastatin (By mouth) Status ED Status: Left Department Discharge Information Discharge Date/Time: 04/04/18 15:47
[2018-04-04 14:57] VITALS: O2SAT 92
--- NOTE | 2018-04-04 15:00 | P.PNPL ---
Subjective Interval history: 77 YOWF with Persistant cough, sob Has cough, small amount of sp No fever Weaned to RA Physical Exam Vital signs: Vital Signs 04/03/18 15:00 04/03/18 15:41 04/03/18 16:00 Temperature 97.6 F Pulse Rate 79 83 86 Respiratory Rate 20 Blood Pressure 130/72 Pulse Oximetry 95 04/03/18 17:00 04/03/18 18:00 04/03/18 19:00 Temperature Pulse Rate 88 86 90 Respiratory Rate Blood Pressure Pulse Oximetry 04/03/18 19:39 04/03/18 20:00 04/03/18 21:00 Temperature 98.5 F Pulse Rate 83 98 H 88 Respiratory Rate 16 18 Blood Pressure 118/60 Pulse Oximetry 93 L 04/03/18 22:00 04/03/18 23:00 04/04/18 00:00 Temperature 98.3 F Pulse Rate 88 92 H 82 Respiratory Rate 18 Blood Pressure 108/57 L Pulse Oximetry 91 L 04/04/18 01:00 04/04/18 02:00 04/04/18 03:00 Temperature Pulse Rate 84 81 89 Respiratory Rate Blood Pressure Pulse Oximetry 04/04/18 04:00 04/04/18 05:00 04/04/18 06:00 Temperature 98.5 F Pulse Rate 98 H 90 84 Respiratory Rate 18 Blood Pressure 106/60 Pulse Oximetry 90 L 04/04/18 07:00 04/04/18 07:39 04/04/18 08:00 Temperature 97.8 F Pulse Rate 83 113 H 95 H Respiratory Rate 16 18 Blood Pressure 136/58 L Pulse Oximetry 95 95 04/04/18 09:00 04/04/18 11:00 04/04/18 12:00 Temperature 97.9 F Pulse Rate 97 H 110 H 111 H Respiratory Rate 18 Blood Pressure 141/66 H Pulse Oximetry 95 04/04/18 12:28 04/04/18 13:00 04/04/18 14:00 Temperature Pulse Rate 107 H 108 H 97 H Respiratory Rate 20 Blood Pressure Pulse Oximetry Intake & Output 04/03/18 04/04/18 04/04/18 18:59 06:59 18:59 Intake Total 2790 / 2790 Output Total 1700 / 1700 Balance 1090 / 1090 Weight 54.6 kg Intake: IV 1000 / 1000 NS Inj 1,000 ML @ 100 mls/hr IV 1000 / 1000 .CONT .Q10H HARVINDER Rx#:[id number] Oral 1790 / 1790 Output: Urine 1700 / 1700 Other: # Incontinent Voids 2 Date of Last Bowel Movement 03/30/18 03/30/18 03/30/18 GENERAL: Elderly WF, NAD SKIN: Warm and dry. HEAD: Normocephalic. EYES: No scleral icterus. No injection or drainage. NECK: Supple, trachea midline. No JVD or lymphadenopathy. CARDIOVASCULAR: Regular rate and rhythm without murmurs, gallops, or rubs. RESPIRATORY: Breath sounds equal bilaterally. No accessory muscle use. GASTROINTESTINAL: Abdomen soft, non-tender, nondistended. MUSCULOSKELETAL: No cyanosis, or edema. BACK: Nontender without obvious deformity. No CVA tenderness. Assessment and Plan - Plan IMPRESSION: 1. Persistent cough, possible reactive airway disease. Need to rule out aberrant bronchial asthma. 2. Migraine headache. 3. Seizure disorder. 4. Anxiety. 5. Increased troponin. PLAN: Aerosol nebs Cont Abx Prednisone 20 mg bid Stable on RA. walk test Stable from Pulm standpoint Will FU in office 04/19/18 at 2:30PM
[2018-04-04 15:26] VITALS: PULSE 98
== END 2018-04-04 15:47 | disposition home health service (06) | DRG 292 ==
LOC: PHED 22:49 → PHEDA 03-31 01:51 → HCIS 03-31 05:19
PROVIDERS: ADMIT Hospitalist; ATTEND Hospitalist
DX: R00.0 Tachycardia, unspecified; R09.02 Hypoxemia; D72.829 Elevated white blood cell count, unspecified; N17.9 Acute kidney failure, unspecified; G40.909 Epilepsy, unspecified, not intractable, without status epilepticus; E87.6 Hypokalemia; I50.31 Acute diastolic (congestive) heart failure; G43.909 Migraine, unspecified, not intractable, without status migrainosus; R06.03 Acute respiratory distress; Z82.49 Family history of ischemic heart disease and other diseases of the circulatory system; F41.9 Anxiety disorder, unspecified; R74.8 Abnormal levels of other serum enzymes; K44.9 Diaphragmatic hernia without obstruction or gangrene; E86.0 Dehydration; Z80.0 Family history of malignant neoplasm of digestive organs; Z80.8 Family history of malignant neoplasm of other organs or systems
CPT/HCPCS: 71010; 71045; 71275; 78452; 80048; 80053; 80061; 80069; 80156; 82248; 82550; 82552; 83520; 83735; 83880; 84484; 85025; 85027; 85610; 85730; 87070; 87205; 87275; 87276; 87449; 87804; 90774; 93005; 93017; 93306; 94060; 94618; 94620; 94640; 94664; 94665; 95819; 96374; 97162; 99291; A9502; C8952; J0456; J0696; J1644; J1940; J2785; J2920; J7030; J7050; J7506; J7512; Q9967